=== PATIENT | male | born 1980 | race Caucasian/White ===

== ENCOUNTER 2020-03-01 16:42 | Emergency (ER) | payer MEDICAID, OTHER ==
[~2020-03-01] VITALS: Ht 180.3 cm; Wt 86.1 kg
--- NOTE | 2020-03-01 17:10 | NUR ---
MACHINE II ENGRAVER AT BEDSIDE.
[2020-03-01] MEDS ORDERED: QUETIAPINE 25MG TABLET ONE (18:01)
[2020-03-01] MEDS: QUETIAPINE 25MG TABLET PO SCH (18:04)
--- NOTE | 2020-03-01 18:09 | NUR ---
PT WILL BE PLACED NO A HOLD FOR SI/HI, PT ALSO PARANOID. PT AGREEABLE. ALL BELONGINGS IN BAG IN SECURE LOCKER. PT ON HOSPITAL BED, ROOM SECURED. SITTER PRESENT
[2020-03-01 18:20] LABS: BASOPHILS # (AUTO) 0.05 x10^3/uL (0-0.1); BASOPHILS % (AUTO) 1 % (0-1); EOSINOPHILS # (AUTO) 0.34 x10^3/uL (0-0.4); EOSINOPHILS % (AUTO) 4 % (1-7); LYMPHOCYTES # (AUTO) 2.17 x10^3/uL (1-3.4); LYMPHOCYTES % (AUTO) 27 % (22-44); MD NO; MEAN CORPUSCULAR HEMOGLOBIN 30.5 pg (27.5-34.5); MEAN CORPUSCULAR HGB CONC 33.3 g/dL (33.2-36.2); MEAN CORPUSCULAR VOLUME 91.6 fL (81-97); MEAN PLATELET VOLUME 8.4 fL (7.4-10.4); MONOCYTES # (AUTO) 0.67 x10^3/uL (0.2-0.8); MONOCYTES % (AUTO) 8 % (2-9); NEUTROPHILS # (AUTO) 4.96 x10^3/uL (1.8-6.8); NEUTROPHILS % (AUTO) 61 % (42-75); PLATELET COUNT 230 x10^3/uL (130-400); RED BLOOD COUNT 4.62 x10^6/uL (4.38-5.82); RED CELL DISTRIBUTION WIDTH 13.8 % (9.4-14.8)
--- NOTE | 2020-03-01 18:28 | NUR ---
THROUGHPUT RN: PT W/ MEDICAID SILVERSUMMIT INSURANCE. CALLED AND SPOKE W/ JUDI AT [facility] WHO DECLINED TRANSFER. CALLED AND SPOKE W/ GILDARDO AT [facility] WHO DECLINED TRANSFER. PSN FAXED AND CONFIRMATION RECEIVED.
[2020-03-01 18:32] LABS: ALBUMIN 3.5 g/dL (3.4-5.0); ANION GAP 5 mmol/L (5-15); CALCIUM 8.7 mg/dL (8.5-10.1); CHLORIDE 112 mmol/L (98-107); CREATININE 1.04 mg/dL (0.7-1.3); SALICYLATE LEVEL 4.1 mg/dL (2.8-20.0)
--- NOTE | 2020-03-01 18:48 | NUR ---
REPORT TO ALEK
--- NOTE | 2020-03-01 18:50 | NUR ---
assumed care of pt. repot from Hermann FERNANDEZ. pt here for SI pe report, but is not engaging in conversation with this TRN or participating in assessment. belongings have been collected and locked up by previous RN. Room secured. sitter present fo safety. pt has been made aware that urine sample needed.
--- NOTE | 2020-03-01 20:15 | NUR ---
pt sleeping in position of comfort on hospital bed with lights dimmed. easily arousable. pt reminde that urine sample needed. pt reports that he is unable to rpovide urine sample at this time. room secure. sitter present for safety
[2020-03-01] MEDS ORDERED: QUETIAPINE 200 MG TABLET PO SCH (21:00)
--- NOTE | 2020-03-01 21:00 | NUR ---
seroquel held at this time as pt is sleeping heavily. OK per Johnie GIBSON. room secure. sitter present for safety
--- NOTE | 2020-03-01 22:45 | NUR ---
pt sleeping in position of comfort. no apparent distress. room secure. sitter present for comfort. will coninue to monitor
--- NOTE | 2020-03-01 23:45 | NUR ---
no changes. pt sleeping in position of comfort. no apparent distress. room secure. sitter present for safety
--- NOTE | 2020-03-02 00:30 | NUR ---
pt sleeping. easily arousable. urine sample collected and sent
--- NOTE | 2020-03-02 00:43 | NUR ---
report to Nuno FERNANDEZ for lunch
[2020-03-02 00:56] LABS: MICROSCOPIC NOT IND
[2020-03-02 01:08] LABS: AMPHETAMINE SCREEN, URINE Positive (Negative); BARBITURATE SCREEN, URINE Negative (Negative); BENZODIAZEPINE SCREEN, URINE Negative (Negative); CANNABINOID SCREEN, URINE Negative (Negative); COCAINE SCREEN, URINE Negative (Negative); METHADONE SCREEN, URINE Negative (Negative); OPIATE SCREEN, URINE Negative (Negative)
--- NOTE | 2020-03-02 01:23 | NUR ---
THROUGHPUT RN: [facility] DECLINED PT DUE TO INSURANCE. PACKET SENT TO [facility], [facility], AND [place].
--- NOTE | 2020-03-02 01:40 | NUR ---
no changes. pt sleeping in position of comfort. no apparent distress. room secure. sitter present for safety. will continue to monitor
--- NOTE | 2020-03-02 02:42 | NUR ---
no changes. pt sleeping in position of comfort on hospital bed with lights dimmed. no apparent distress. room secure. sitter present for safety. will continue to monitor
--- NOTE | 2020-03-02 03:44 | NUR ---
pt sleeping. room secure. sitter present for safety
--- NOTE | 2020-03-02 04:29 | NUR ---
pt continues sleeping on hospital bed in position of comfort. room secure. sitter present for safety
--- NOTE | 2020-03-02 06:16 | NUR ---
pt sleeping. easily arousable. no new c/o. no apparent distress. awaiting meal tray delivery. pt updated on POC. room secure. sitter present for safety
[2020-03-02] MEDS ORDERED: QUET200T7 PO (06:20)
[2020-03-02] MEDS ORDERED: DOXE50CA PO (06:20)
[2020-03-02] MEDS ORDERED: LORA-446 PO (06:20)
--- NOTE | 2020-03-02 06:56 | NUR ---
BEDSIDE REPORT RECEIVED FROM NICHOL GASTON RN. PT RESTING IN BED. SITTER REMAINS AT BEDSIDE. ROOM REMAINS SECURE.
--- NOTE | 2020-03-02 06:56 | NUR ---
report to Cesar at [facility] via telephone
--- NOTE | 2020-03-02 07:01 | NUR ---
pt to go to [facility] at 1100. bedside report to Carmela FERNANDEZ
--- NOTE | 2020-03-02 07:12 | NUR ---
THROUGHPUT RN: PT MEDICALLY CLEARED ON LEGAL HOLD. [facility] ACCEPTED PATIENT. [facility] SIGNED, CALLED [facility] PT HAS NO TRANSPORT BENIFITS. CALLED [facility], PICK, UP TIME AT 1100. RN AWARE.
--- NOTE | 2020-03-02 07:31 | NUR ---
YELLOW SLIP SENT TO PHARMACY FOR MEDS.
[2020-03-02] MEDS: QUETIAPINE 25MG TABLET PO SCH (08:50)
[2020-03-02 08:52] VITALS: BP 117/79
--- NOTE | 2020-03-02 08:56 | NUR ---
PT RESTING IN BED. NADN. VSS. PT PROVIDED W/ SI BREAKFAST TRAY. SITTER REMAINS AT BEDSIDE. ROOM REMAINS SECURE.
--- NOTE | 2020-03-02 09:40 | NUR ---
PT RESTING IN BED. NADN. SITTER REMAINS AT BEDSIDE. ROOM REMAINS SECURE.
--- NOTE | 2020-03-02 10:10 | NUR ---
PT RESTING IN BED. NADN. SITTER REMAINS AT BEDSIDE. ROOM REMAINS SECURE.
--- NOTE | 2020-03-02 11:14 | NUR ---
PT RESTING IN BED. NADN. SITTER REMAINS AT BEDSIDE. ROOM REMAINS SECURE.
--- NOTE | 2020-03-02 12:03 | NUR ---
PT PROVIDED W/ SI LUNCH TRAY. PT RESTING IN BED. NADN. SITTER REMAINS AT BEDSIDE. ROOM REMAINS SECURE.
--- NOTE | 2020-03-02 13:11 | NUR ---
I AM ASSUMING CARE OF THIS PT FROM MICHAELLE (REBECCA) AT THIS TIME. SBAR REPORT WAS EXCHANGED AT THE BEDSIDE.
--- NOTE | 2020-03-02 13:12 | NUR ---
REPORT GIVEN TO REBECCA LOMBARDI.
== END 2020-03-02 13:33 ==
LOC: ED 18:11
DX: F20.0 Paranoid schizophrenia (principal); R00.0 Tachycardia, unspecified; R05 Cough
CPT/HCPCS: 36415; 71045; 80048; 80307; 81003; 82040; 85025; 99285

== ENCOUNTER 2020-03-12 20:39 | Emergency (ER) | payer MEDICAID ==
[~2020-03-12] VITALS: Ht 180.3 cm; Wt 88.7 kg
[~2020-03-12 20:39] MED LIST: DOXE50CA PO; LORA-446 PO; QUET200T7 PO
[2020-03-12 20:44] VITALS: BP 142/91
--- NOTE | 2020-03-12 21:06 | NUR ---
PT REPORTS SI FOR APPROX 12 HOURS. PLAN IS TO CUT HIS WRISTS. HX OF SAME. TAKES SEROQUEL AT HOME AND OTHER PSYCH MEDS HE CANNOT NAME. UNSURE OF PSYCH HISTORY. PT CALM AND COOPERATIVE. ALL BELONGINGS IN A BAG AND PLACED IN LOCKER WITH PT LABEL.
[2020-03-12 21:33] LABS: BASOPHILS # (AUTO) 0.04 x10^3/uL (0-0.1); BASOPHILS % (AUTO) 0 % (0-1); EOSINOPHILS # (AUTO) 0.13 x10^3/uL (0-0.4); EOSINOPHILS % (AUTO) 1 % (1-7); LYMPHOCYTES # (AUTO) 2.46 x10^3/uL (1-3.4); LYMPHOCYTES % (AUTO) 21 % (22-44); MD NO; MEAN CORPUSCULAR HEMOGLOBIN 30.4 pg (27.5-34.5); MEAN CORPUSCULAR HGB CONC 33.2 g/dL (33.2-36.2); MEAN CORPUSCULAR VOLUME 91.3 fL (81-97); MONOCYTES # (AUTO) 1.03 x10^3/uL (0.2-0.8); MONOCYTES % (AUTO) 9 % (2-9); NEUTROPHILS # (AUTO) 7.98 x10^3/uL (1.8-6.8); NEUTROPHILS % (AUTO) 69 % (42-75); PLATELET COUNT 246 x10^3/uL (130-400); RED BLOOD COUNT 4.93 x10^6/uL (4.38-5.82); RED CELL DISTRIBUTION WIDTH 13.7 % (9.4-14.8)
[2020-03-12 21:34] LABS: ALBUMIN 3.9 g/dL (3.4-5.0); ANION GAP 8 mmol/L (5-15); CHLORIDE 110 mmol/L (98-107); SALICYLATE LEVEL 2.7 mg/dL (2.8-20.0)
[2020-03-12 21:37] LABS: ALANINE AMINOTRANSFERASE 38 U/L (12-78); ALKALINE PHOSPHATASE 119 U/L (45-117); BILIRUBIN,TOTAL 0.1 mg/dL (0.2-1.0); CREATININE 1.11 mg/dL (0.7-1.3); TOTAL PROTEIN 7.7 g/dL (6.4-8.2)
[2020-03-12] MEDS ORDERED: SEROQUEL (21:39)
--- NOTE | 2020-03-12 21:39 | NUR ---
PT RESTING ON GURNEY, WATCHING TV. PT COOPERATIVE. SITTER IN [place] FOR FREQUENT CHECKS.
[2020-03-12 21:47] LABS: AMPHETAMINE SCREEN, URINE Negative (Negative); BARBITURATE SCREEN, URINE Negative (Negative); BENZODIAZEPINE SCREEN, URINE Negative (Negative); CANNABINOID SCREEN, URINE Negative (Negative); COCAINE SCREEN, URINE Negative (Negative); METHADONE SCREEN, URINE Negative (Negative); OPIATE SCREEN, URINE Negative (Negative)
--- NOTE | 2020-03-12 23:18 | NUR ---
PT RESTING ON GURNEY, RESPIRATIONS EVEN AND UNLABORED. SITTER AT DOORWAY FOR FREQUENT CHECKS.
--- NOTE | 2020-03-12 23:50 | NUR ---
THROUGHPUT RN: PACKET FAXED TO [facility], [facility], AND [facility]. PER JEFFRY @[email or web address] AND ERICK @[facility], PACKET HAD BEEN RECEIVED. PER YUNIEL @[facility], PACKET WAS NOT RECEIVED. ALL INFO REFAXED TO [facility].
--- NOTE | 2020-03-13 00:30 | NUR ---
MT: [facility] CALLED AND ACCEPTED PT FOR 5AM. ACCEPTING DOCTOR IS DR. TRAN.
--- NOTE | 2020-03-13 01:00 | NUR ---
REPORT TO REBECCA WIGGINS
--- NOTE | 2020-03-13 02:25 | NUR ---
pt resting in bed, with pt room si secure with sitter at pt door. pt has no needs at this time, continuity writer will continue to monitor pt.
== END 2020-03-13 04:47 ==
LOC: ED 22:45
DX: R45.851 Suicidal ideations (principal); F32.9 Major depressive disorder, single episode, unspecified; Z88.2 Allergy status to sulfonamides; Z88.0 Allergy status to penicillin; Z79.899 Other long term (current) drug therapy
CPT/HCPCS: 36415; 80053; 80307; 85025; 99285

== ENCOUNTER 2020-03-25 07:46 | Emergency (ER) | payer MEDICAID ==
[~2020-03-25] VITALS: Ht 181.6 cm; Wt 87.5 kg
[~2020-03-25 07:46] MED LIST changes: +SEROQUEL
[2020-03-25 07:54] VITALS: BP 112/67
[2020-03-25] MEDS ORDERED: AMAN100C7 PO (08:17)
[2020-03-25] MEDS ORDERED: HYDR50CA2 PO (08:17)
[2020-03-25] MEDS ORDERED: BENZ1TAB61 PO (08:17)
--- NOTE | 2020-03-25 08:17 | NUR ---
PT PRESENTS TO ED WITH BLURRED VISION AFTER TWO DAYS ON NEW MEDICATIONS TO COUNTERACT HALDOL SYMPTOMS. PT REPORTS INABILITY TO RELIEVE BLURRED VISION WITH READERS RECENTLY PURCHASED. PT DENIES PAIN AT THIS TIME. ERMD IN TO ASSESS PT.
== END 2020-03-25 09:05 | disposition home or self-care (01) ==
LOC: ED 08:55
DX: H53.8 Other visual disturbances (principal); R68.2 Dry mouth, unspecified; R39.11 Hesitancy of micturition; R45.1 Restlessness and agitation; R00.0 Tachycardia, unspecified; T42.8X5A Adverse effect of antiparkinsonism drugs and other central muscle-tone depressants, initial encounter; T44.3X5A Adverse effect of other parasympatholytics [anticholinergics and antimuscarinics] and spasmolytics, initial encounter; Y92.89 Other specified places as the place of occurrence of the external cause
CPT/HCPCS: 99282

== ENCOUNTER 2020-03-28 09:04 | Emergency (ER) | payer MEDICAID ==
[~2020-03-28 09:04] MED LIST changes: +AMAN100C7 PO; +BENZ1TAB61 PO; +HYDR50CA2 PO
--- NOTE | 2020-03-28 09:15 | NUR ---
TRIAGE RAIL SIGNAL WORKER REPORTS PATIENT GAVE HIS NAME TO REGISTER THEN IMMEDIATELY WALKED OUT THE DOOR. ADULT HIGH SCHOOL INSTRUCTOR MADE AWARE
[2020-03-28] MEDS ORDERED: HALO100V IM (09:57)
[2020-03-28] MEDS ORDERED: QUET200T PO (09:57)
== END 2020-03-28 09:19 | disposition left against medical advice (07) ==
LOC: ED 09:11
DX: F41.9 Anxiety disorder, unspecified (principal); Z53.21 Procedure and treatment not carried out due to patient leaving prior to being seen by health care provider

== ENCOUNTER 2020-03-28 09:29 | Emergency (ER) | payer MEDICAID ==
[~2020-03-28] VITALS: Ht 180.3 cm; Wt 86.8 kg
[2020-03-28 09:37] VITALS: BP 115/80
--- NOTE | 2020-03-28 09:50 | NUR ---
TAKEN OFF HALDOL & COGENTIN "RISA I WAS HAVING BAD SIDE EFFECTS". "NOW I'M HAVING SUICIDAL THOUGHTS", "I'M VERY ANTCY". PT PACING ROOM, RAPID SPEECH. ROOM SECURED. URINE SPECIMEN PROVIDED EARLIER PER PT. PT DENIES ETOH AND ILLICIT DRUG USE. "I CAN'T SIT STILL". DENIES SPECIFIC PLAN, ADMITS TO PAST ATTEMPTS.
[2020-03-28] MEDS ORDERED: QUET200T PO (09:57)
[2020-03-28] MEDS ORDERED: HALO100V IM (09:57)
[2020-03-28] MEDS ORDERED: LORazepam 1MG TABLET PO ONE (10:00)
[2020-03-28] MEDS ORDERED: LORazepam 1MG TABLET ONE (10:02)
--- NOTE | 2020-03-28 10:08 | NUR ---
ATIVAN GIVEN PER EMAR. CAVAZOS OUTSIDE PT ROOM. Addendum: 03/28/20 at 1008 by JC PT'S BELONGINGS WERE BAGGED AND PLACED IN ED LOCKER PER IT QUALITY ANALYST EARLIER.
--- NOTE | 2020-03-28 10:09 | NUR ---
PT REPORT TO REBECCA ARENAS. PT CARE TRANSFERRED.
[2020-03-28 10:17] LABS: BASOPHILS # (AUTO) 0.03 x10^3/uL (0-0.1); BASOPHILS % (AUTO) 0 % (0-1); EOSINOPHILS % (AUTO) 1 % (1-7); LYMPHOCYTES # (AUTO) 1.93 x10^3/uL (1-3.4); LYMPHOCYTES % (AUTO) 13 % (22-44); MD NO; MEAN CORPUSCULAR HEMOGLOBIN 30.2 pg (27.5-34.5); MEAN CORPUSCULAR VOLUME 91.6 fL (81-97); MEAN PLATELET VOLUME 7.7 fL (7.4-10.4); MONOCYTES # (AUTO) 0.83 x10^3/uL (0.2-0.8); MONOCYTES % (AUTO) 5 % (2-9); NEUTROPHILS # (AUTO) 12.48 x10^3/uL (1.8-6.8); NEUTROPHILS % (AUTO) 81 % (42-75); PLATELET COUNT 252 x10^3/uL (130-400); RED BLOOD COUNT 5.02 x10^6/uL (4.38-5.82); RED CELL DISTRIBUTION WIDTH 13.5 % (9.4-14.8)
[2020-03-28 10:28] LABS: ALANINE AMINOTRANSFERASE 23 U/L (12-78); ANION GAP 8 mmol/L (5-15); CALCIUM 9.4 mg/dL (8.5-10.1); CHLORIDE 113 mmol/L (98-107); CREATININE 0.98 mg/dL (0.7-1.3)
[2020-03-28 10:31] LABS: AMPHETAMINE SCREEN, URINE Negative (Negative); BENZODIAZEPINE SCREEN, URINE Negative (Negative); CANNABINOID SCREEN, URINE Negative (Negative); COCAINE SCREEN, URINE Negative (Negative); METHADONE SCREEN, URINE Negative (Negative); OPIATE SCREEN, URINE Negative (Negative)
[2020-03-28 10:31] LABS: ALKALINE PHOSPHATASE 108 U/L (45-117); BILIRUBIN,TOTAL 0.5 mg/dL (0.2-1.0); SALICYLATE LEVEL 3.1 mg/dL (2.8-20.0); TOTAL PROTEIN 7.7 g/dL (6.4-8.2)
[2020-03-28 10:34] LABS: BARBITURATE SCREEN, URINE Negative (Negative)
--- NOTE | 2020-03-28 10:49 | NUR ---
Pt resting in room, safety precautions in place.
--- NOTE | 2020-03-28 12:14 | NUR ---
[facility] HELICOPTER PILOT AT BEDSIDE FOR EVALUATION. SAFETY PRECUAITONS IN PLACE.
--- NOTE | 2020-03-28 12:26 | NUR ---
MEAL PROVIDED, DISCHARED INSTRUCTIONS REVIEWED.
== END 2020-03-28 12:49 ==
LOC: ED 09:59
DX: F20.9 Schizophrenia, unspecified (principal); R45.851 Suicidal ideations; F41.9 Anxiety disorder, unspecified
CPT/HCPCS: 36415; 80053; 80307; 85025; 99285

== ENCOUNTER 2020-04-08 17:57 | Emergency (ER) | payer MEDICAID ==
[~2020-04-08] VITALS: Ht 180.3 cm; Wt 88.0 kg
[~2020-04-08 17:57] MED LIST changes: +HALO100V IM; +QUET200T PO
--- NOTE | 2020-04-08 19:00 | NUR ---
pt to room from lobby
[2020-04-08 19:06] VITALS: BP 118/91
--- NOTE | 2020-04-08 19:10 | NUR ---
"I WAS JUST D/C'D FROM A MENTAL HEALTH FACILITY TODAY, THEY D/C'D ME WITHOUT ANY OF MY NORMAL MEDS AND TOLD ME THEY WANT TO SEE HOW IT GOES. [employer] CALLED THE AMBULANCE BECUASE I WAS WALKING OUT IN TRAFFIC, I WAS HAVING A PANIC ATTACK. I'VE HAD THESE BEFORE, I'VE BEEN TOLD I HAVE TACHYCARDIA WHEN IT HAPPENS." PT A&OX4. ABLE TO SIT IN BED. NO SIGNS OF ACUTE DISTRESS. AMBULATORY TO BATHROOM FOR UA.
[2020-04-08 19:46] LABS: BASOPHILS # (AUTO) 0.08 x10^3/uL (0-0.1); BASOPHILS % (AUTO) 1 % (0-1); EOSINOPHILS # (AUTO) 0.27 x10^3/uL (0-0.4); EOSINOPHILS % (AUTO) 2 % (1-7); LYMPHOCYTES # (AUTO) 2.73 x10^3/uL (1-3.4); LYMPHOCYTES % (AUTO) 24 % (22-44); MD NO; MEAN CORPUSCULAR HEMOGLOBIN 30.4 pg (27.5-34.5); MEAN CORPUSCULAR HGB CONC 33.6 g/dL (33.2-36.2); MEAN CORPUSCULAR VOLUME 90.4 fL (81-97); MEAN PLATELET VOLUME 7.8 fL (7.4-10.4); MONOCYTES # (AUTO) 0.67 x10^3/uL (0.2-0.8); MONOCYTES % (AUTO) 6 % (2-9); NEUTROPHILS # (AUTO) 7.59 x10^3/uL (1.8-6.8); NEUTROPHILS % (AUTO) 67 % (42-75); PLATELET COUNT 216 x10^3/uL (130-400); RED CELL DISTRIBUTION WIDTH 13.4 % (9.4-14.8)
[2020-04-08 19:59] LABS: ALBUMIN 3.9 g/dL (3.4-5.0); ANION GAP 8 mmol/L (5-15); CALCIUM 8.6 mg/dL (8.5-10.1); CHLORIDE 111 mmol/L (98-107); SALICYLATE LEVEL 2.1 mg/dL (2.8-20.0)
[2020-04-08 20:02] LABS: ALANINE AMINOTRANSFERASE 30 U/L (12-78); ALKALINE PHOSPHATASE 98 U/L (45-117); AMPHETAMINE SCREEN, URINE Negative (Negative); BARBITURATE SCREEN, URINE Negative (Negative); BENZODIAZEPINE SCREEN, URINE Negative (Negative); BILIRUBIN,TOTAL 0.2 mg/dL (0.2-1.0); CANNABINOID SCREEN, URINE Negative (Negative); COCAINE SCREEN, URINE Negative (Negative); CREATININE 0.95 mg/dL (0.7-1.3); METHADONE SCREEN, URINE Negative (Negative); OPIATE SCREEN, URINE Negative (Negative); TOTAL PROTEIN 7.6 g/dL (6.4-8.2)
[2020-04-08] MEDS ORDERED: ZIPRASIDONE 20 MG INJ IM ONE ×2 (20:08→20:30)
--- NOTE | 2020-04-08 20:14 | NUR ---
PT HAS BEEN PACING IN HIS ROOM. PT EDUCATED ON MED, AMBULATORY TO BATHROOM.
--- NOTE | 2020-04-08 23:00 | NUR ---
josue domingo put 2 belongings bags in lock up. clothes only. room secure and sitter at .
--- NOTE | 2020-04-09 01:16 | NUR ---
Report received from REBECCA Schwartz. This RN to assume care.
--- NOTE | 2020-04-09 01:24 | NUR ---
[facility]: [facility]
--- NOTE | 2020-04-09 02:03 | NUR ---
Patient sleeping in rney. Respirations even and unlabored. Room secured, belongings locked in cabinet, sitter outside.
--- NOTE | 2020-04-09 02:49 | NUR ---
GAVE REPORT TO LAUREN FERNANDEZ AT [facility] WHO SAID THAT DR SANTACRUZ THERE WILL ACCEPT PT A PATIENT AND TO SEND HIM OVER JOS[place]
--- NOTE | 2020-04-09 03:11 | NUR ---
Patient sleeping in rney. Respirations even and unlabored. Room secured, belongings locked in cabinet, sitter outside.
--- NOTE | 2020-04-09 03:23 | NUR ---
PT ACCEPTED BY [facility]. ACCEPTINF DOCTOR IS DR. SANTACRUZ. RN WILL BE LAUREN.
--- NOTE | 2020-04-09 04:28 | NUR ---
Report given to [facility]. Patient to be transferred to [facility].
== END 2020-04-09 04:30 ==
LOC: ED 21:27
DX: R45.851 Suicidal ideations (principal); F41.9 Anxiety disorder, unspecified; F10.129 Alcohol abuse with intoxication, unspecified; Z72.9 Problem related to lifestyle, unspecified; R00.0 Tachycardia, unspecified; F17.200 Nicotine dependence, unspecified, uncomplicated; F20.9 Schizophrenia, unspecified; Y90.9 Presence of alcohol in blood, level not specified
CPT/HCPCS: 36415; 80053; 80307; 85025; 93005; 96372; 99285; J3486

== ENCOUNTER 2020-04-10 18:23 | Emergency (ER) | payer MEDICAID ==
[~2020-04-10] VITALS: Ht 180.3 cm; Wt 87.0 kg
[2020-04-10 19:09] LABS: BASOPHILS # (AUTO) 0.07 x10^3/uL (0-0.1); BASOPHILS % (AUTO) 1 % (0-1); EOSINOPHILS # (AUTO) 0.14 x10^3/uL (0-0.4); EOSINOPHILS % (AUTO) 1 % (1-7); LYMPHOCYTES % (AUTO) 22 % (22-44); MD NO; MEAN CORPUSCULAR HEMOGLOBIN 30.2 pg (27.5-34.5); MEAN CORPUSCULAR HGB CONC 33.8 g/dL (33.2-36.2); MEAN CORPUSCULAR VOLUME 89.2 fL (81-97); MEAN PLATELET VOLUME 7.7 fL (7.4-10.4); MONOCYTES # (AUTO) 0.88 x10^3/uL (0.2-0.8); MONOCYTES % (AUTO) 7 % (2-9); NEUTROPHILS # (AUTO) 8.67 x10^3/uL (1.8-6.8); NEUTROPHILS % (AUTO) 70 % (42-75); PLATELET COUNT 206 x10^3/uL (130-400); RED BLOOD COUNT 4.95 x10^6/uL (4.38-5.82); RED CELL DISTRIBUTION WIDTH 13.3 % (9.4-14.8)
[2020-04-10 19:19] LABS: ALBUMIN 4.1 g/dL (3.4-5.0); ANION GAP 12 mmol/L (5-15); CALCIUM 8.3 mg/dL (8.5-10.1); CHLORIDE 102 mmol/L (98-107); CREATININE 0.95 mg/dL (0.7-1.3)
--- NOTE | 2020-04-10 20:06 | NUR ---
VSWNL. Pt sleeping, no distress noted. Will continue to monitor.
--- NOTE | 2020-04-10 20:45 | NUR ---
TASK RN: PT. AMBULATING AROUND ROOM. PT. REQUESTING BATHROOM. AMBULATED TO BR WITH STEADY GAIT. UA CUP GIVEN AND CLEAN CATCH INSTRUCTIONS GIVEN.
--- NOTE | 2020-04-10 21:54 | NUR ---
Pt up to bathroom multiple times, somewhat steady on feet. Sleeping at present.
[2020-04-10 21:57] VITALS: BP 123/80
== END 2020-04-10 22:42 ==
LOC: ED 18:48
DX: G31.2 Degeneration of nervous system due to alcohol (principal); R55 Syncope and collapse; R00.0 Tachycardia, unspecified; F17.200 Nicotine dependence, unspecified, uncomplicated; W18.30XA Fall on same level, unspecified, initial encounter; Y93.89 Activity, other specified; Y92.009 Unspecified place in unspecified non-institutional (private) residence as the place of occurrence of the external cause; Y99.8 Other external cause status
CPT/HCPCS: 36415; 80048; 82040; 85025; 93005; 99284

== ENCOUNTER 2020-04-11 10:50 | Emergency (ER) | payer MEDICAID ==
[~2020-04-11] VITALS: Ht 180.3 cm; Wt 86.3 kg
[2020-04-11 10:52] VITALS: BP 141/87
--- NOTE | 2020-04-11 11:05 | NUR ---
PT TO THE RESTROOM WITH A STEADY GAIT. URINE SAMPLE PROVIDED AND WALKED TO THE LAB FOR ANALYSIS. ROOM IS SECURED, PT IS CHANGED INTO A GOWN WITH BELONGINGS SECURED. SITTER IS AT THE DOOR FOR SAFETY/SECURITY. I WILL MONITOR AND TREAT ORDERED, WELL PRN WHILE AWAITING A PLAN OF CARE FROM LEONARDO.
--- NOTE | 2020-04-11 11:12 | NUR ---
PAIGE-Samy IS AT THE BEDSIDE FOR ASSESSMENT
--- NOTE | 2020-04-11 11:35 | NUR ---
PRAVEENA (RN) IS ASSUMING CARE OF THIS PT AT THIS TIME. SBAR WAS EXCHANGED AT THE BEDSIDE.
--- NOTE | 2020-04-11 11:36 | NUR ---
RECEIVED REPORT FROM MARIA C FERNANDEZ. ASSUMING CARE AT THIS TIME.
[2020-04-11 11:48] LABS: BASOPHILS # (AUTO) 0.03 x10^3/uL (0-0.1); BASOPHILS % (AUTO) 0 % (0-1); EOSINOPHILS # (AUTO) 0.01 x10^3/uL (0-0.4); EOSINOPHILS % (AUTO) 0 % (1-7); LYMPHOCYTES % (AUTO) 18 % (22-44); MD NO; MEAN CORPUSCULAR HEMOGLOBIN 30.5 pg (27.5-34.5); MEAN CORPUSCULAR HGB CONC 33.6 g/dL (33.2-36.2); MEAN CORPUSCULAR VOLUME 90.7 fL (81-97); MEAN PLATELET VOLUME 7.8 fL (7.4-10.4); MONOCYTES # (AUTO) 0.73 x10^3/uL (0.2-0.8); MONOCYTES % (AUTO) 6 % (2-9); NEUTROPHILS # (AUTO) 9.24 x10^3/uL (1.8-6.8); NEUTROPHILS % (AUTO) 76 % (42-75); PLATELET COUNT 237 x10^3/uL (130-400); RED BLOOD COUNT 4.99 x10^6/uL (4.38-5.82); RED CELL DISTRIBUTION WIDTH 13.5 % (9.4-14.8)
[2020-04-11 11:55] LABS: ALBUMIN 4.3 g/dL (3.4-5.0); ANION GAP 9 mmol/L (5-15); CHLORIDE 105 mmol/L (98-107); CREATININE 0.98 mg/dL (0.7-1.3); SALICYLATE LEVEL 2.6 mg/dL (2.8-20.0)
[2020-04-11] MEDS ORDERED: LORazepam 0.5MG TABLET PO PRN (12:00)
[2020-04-11] MEDS ORDERED: QUETIAPINE 25MG TABLET PO ONE (12:00)
[2020-04-11 12:08] LABS: BARBITURATE SCREEN, URINE Negative (Negative); CANNABINOID SCREEN, URINE Negative (Negative); COCAINE SCREEN, URINE Negative (Negative); METHADONE SCREEN, URINE Negative (Negative)
[2020-04-11] MEDS ORDERED: QUETIAPINE 25MG TABLET ONE (12:10)
[2020-04-11] MEDS ORDERED: LORazepam 0.5MG TABLET ONE (12:10)
--- NOTE | 2020-04-11 12:13 | NUR ---
MEDS ADMIN PER OCT. PT STANDING UP IN ROOM, PACING. PT IN DIRECT SIGHT OF SITTER. PT COMPLIANT WITH CARE.
[2020-04-11 12:14] LABS: AMPHETAMINE SCREEN, URINE Negative (Negative); BENZODIAZEPINE SCREEN, URINE Negative (Negative); OPIATE SCREEN, URINE Negative (Negative)
--- NOTE | 2020-04-11 13:23 | NUR ---
PT TO RM 3 AT THIS TIME. NO NEEDS, SI PRECAUTIONS IN PLACE
--- NOTE | 2020-04-11 15:44 | NUR ---
PACKET FAXED TO [facility], [facility] AND [facility]
--- NOTE | 2020-04-11 17:00 | NUR ---
ATTEMPT TO CALL REPORT TO [facility] RN TO CALL BACK
--- NOTE | 2020-04-11 18:16 | NUR ---
PT DISCHARGED TO [facility] FOR TRANSPORT. DISPITE MULTIPLE ATTEMPTS THIS RN UNABLE TO RECOVER LOST BELONGINGS PRIOR TO PT LEAVING. PT STABLE ON DC
[2020-04-11] MEDS ORDERED: QUETIAPINE 100MG TABLET PO SCH (21:00)
== END 2020-04-11 18:09 ==
LOC: ED 11:13
DX: R45.851 Suicidal ideations (principal); F17.290 Nicotine dependence, other tobacco product, uncomplicated
CPT/HCPCS: 36415; 80048; 80307; 82040; 85025; 99285

== ENCOUNTER 2020-11-30 03:13 | Emergency (ER) | payer MEDICAID ==
[~2020-11-30] VITALS: Ht 180.3 cm; Wt 95.0 kg
[2020-11-30 04:09] VITALS: BP 110/69
--- NOTE | 2020-11-30 04:10 | NUR ---
Patient/Caregiver given discharge instructions and they have confirmed that they understand the instructions. Patient ambulatory with steady gait.
== END 2020-11-30 04:12 | disposition home or self-care (01) ==
LOC: ED 04:01
DX: F20.0 Paranoid schizophrenia (principal); F41.1 Generalized anxiety disorder
CPT/HCPCS: 99283